=== PATIENT | male | born 1970 | race Caucasian/White ===

== ENCOUNTER 2018-10-01 18:36 | Emergency (ER) | payer MEDICAID, OTHER ==
[2018-10-01] MEDS: NAPROXEN 500 MG TAB PO (20:39)
[2018-10-01] MEDS: LORAZEPAM 1 MG TAB PO (20:39)
== END 2018-10-01 21:37 | disposition home or self-care (01) ==
LOC: FTE 18:36
DX: M54.5 Low back pain (principal); E11.9 Type 2 diabetes mellitus without complications; F17.210 Nicotine dependence, cigarettes, uncomplicated
CPT/HCPCS: 72040; 72100; 99283-25